=== PATIENT | male | born 1995 | race African-American/Black ===

== ENCOUNTER 2021-03-06 23:02 | Emergency (ER) | payer OTHER ==
[~2021-03-06] VITALS: Ht 180.3 cm; Wt 82.1 kg
--- NOTE | 2021-03-06 23:02 | NUR ---
PT BIB [facility], PREBOOK. TAKEN TO CHAIR C
[2021-03-06 23:05] VITALS: BP 97/59
--- NOTE | 2021-03-07 00:05 | NUR ---
DR BENITEZ EXAMINING PT
--- NOTE | 2021-03-07 00:19 | NUR ---
PATIENT BIB [facility]. PATIENT EXAMINED BY DR. BENITEZ. PATIENT MEDICALLY CLEARED AND RELEASED IN CUSTODY IN STABLE CONDITION. ORIGINAL PRE-BOOK FORM GIVEN TO OFFICER FERNANDEZ, #[id number].
== END 2021-03-07 00:19 ==
LOC: MED 23:02
DX: R03.0 Elevated blood-pressure reading, without diagnosis of hypertension (principal); F17.210 Nicotine dependence, cigarettes, uncomplicated; Z02.89 Encounter for other administrative examinations
CPT/HCPCS: 99283